=== PATIENT | male | born 1950 | race Caucasian/White ===

== ENCOUNTER → 2017-05-11 | Outpatient (CLI) | payer MEDICARE ==
[~2017-05-11] MED LIST: AZIT-17 PO; CORED OT; MOMR ENA
[2017-05-11 09:07] LABS: PLATELET COUNT, AUTOMATED 210 K/uL (150-450)
[2017-05-11 09:25] LABS: LDL CHOLESTEROL 141 mg/dl
== END ==
LOC: LAB 08:39
PROVIDERS: ATTEND Internal Medicine
DX: Z12.5 Encounter for screening for malignant neoplasm of prostate (principal); E78.5 Hyperlipidemia, unspecified; R53.83 Other fatigue; R79.9 Abnormal finding of blood chemistry, unspecified
CPT/HCPCS: 36415; 81001; 82728; 83540; 83550; 84443; 85025; G0103; 82040; 82247; 82310; 82374; 82435; 82465; 82565; 82947; 83718; 84075; 84132; 84153; 84155; 84295; 84450; 84460; 84478; 84520

== ENCOUNTER → 2018-05-31 | Outpatient (CLI) | payer OTHER ==
[2018-05-31 09:15] LABS: PLATELET COUNT, AUTOMATED 207 K/uL (150-450)
[2018-05-31 10:16] LABS: LDL CHOLESTEROL 125 mg/dl
== END ==
LOC: LAB 08:47
PROVIDERS: ATTEND Internal Medicine
DX: Z00.00 Encounter for general adult medical examination without abnormal findings (principal); Z12.5 Encounter for screening for malignant neoplasm of prostate; E78.5 Hyperlipidemia, unspecified; R79.9 Abnormal finding of blood chemistry, unspecified
CPT/HCPCS: 36415; 81001; 82040; 82247; 82310; 82374; 82435; 82465; 82565; 82728; 82947; 83540; 83550; 83718; 84075; 84132; 84153; 84155; 84295; 84443; 84450; 84460; 84478; 84520; 85025

== ENCOUNTER 2018-09-12 00:38 | Day surgery (SDC) | payer OTHER ==
[~2018-09-12] VITALS: Ht 193 cm; Wt 91.2 kg
[~2018-09-12 00:38] MED LIST changes: +GLUC-198 PO; +OMEG-96 PO; +SAW/1TAB2 PO; +TURM1POW3 MC
[2018-09-12 06:25] VITALS: BP 127/70
[2018-09-12] MEDS ORDERED: NORMOSOL R SOLN(*) 1000 ML BAG 1,000 ML IV PRN (06:30)
[2018-09-12] MEDS ORDERED: LIDOCAINE/SOD BICARB 8.4% SYR ID ONE (06:30)
[2018-09-12] MEDS ORDERED: LIDOCAINE MPF 1% 5 ML VIAL ONE (06:51)
[2018-09-12] MEDS ORDERED: PROPOFOL EMUL(*) 10MG/ML 20 ML 60 ML ONE (06:51)
[2018-09-12 08:07] VITALS: BP 99/59
--- NOTE | 2018-09-12 08:23 | Short(Outpt) Discharge Summary ---
Discharge Summary Reason for Hosp/Final Diag: (1) Positive colorectal cancer screening using Cologuard test Status: Chronic Hospital Course & Plan: Colonoscopy with polypectomy x3 completed without problems. Departure Discharge to: Home, Self Care Discharge Instructions Home Meds Reported Medications Turmeric (CURCUMIN) 1 Gm Powder, 1 GM MC 1-2XD 07/13/18 Glucosa Mata 2KCL/Chondroitin Mata (GLUCOSAMINE & CHONDROITIN CAP) 1 Each Capsule, 1 EACH PO 1-2XD, CAPSULE 07/13/18 Saw/Vit E/Sod Brigette/Lyc/Beta/Pyg (Prostate Health Caplet) 1 Each Tablet, PO QDAY 07/13/18 [place]-3 Fatty Acids/Fish Oil (OMEGA 3 1,000 MG SOFTGEL) 1 Each Capsule, 1 EACH PO QDAY, CAPSULE 07/13/18 Diet: Regular Activity: As Tolerated Special Instructions: Your colonoscopy was completed without problems and your prep was excellent (Good Job!!). I removed 3 small polyps from your colon and they were sent to pathology. My office will call you in the next week or two to let you know what the polyps are and when your next colonoscopy should be (either 5 or 10 years) depending on pathology results. PRO CLEMENTS MD Sep 12, 2018 08:23
[2018-09-12 08:25] VITALS: BP 105/69
[2018-09-12 08:30] VITALS: BP 101/64
[2018-09-12 08:55] VITALS: BP 117/68
[2018-09-12 09:00] VITALS: BP 114/70
== END 2018-09-12 09:30 | disposition home or self-care (01) ==
LOC: OR 00:38
PROVIDERS: ATTEND Surgery
DX: Z12.11 Encounter for screening for malignant neoplasm of colon (principal); K63.5 Polyp of colon
CPT/HCPCS: 00811; 45385; 88305; J2001; J2704